=== PATIENT | female | born 1985 | race Caucasian/White ===

== ENCOUNTER 2024-11-23 15:39 | Outpatient (CLI) | payer OTHER, SELFPAY ==
[2024-11-24] LABS: Chlamydia DNA Amplified* NOT DETECTED (No Detected); GC DNA Amplified* NOT DETECTED (No Detected)
[2024-11-30 15:29] LABS: HPV Source Cervix; HPV, High Risk by TMA Not Detected
== END 2024-11-23 15:40 | disposition home or self-care (01) ==
PROVIDERS: PCP Physician Assistant Medical; Visit Provider Physician Assistant Medical
DX: Z11.3 Encounter for screening for infections with a predominantly sexual mode of transmission (principal); Z11.51 Encounter for screening for human papillomavirus (HPV); Z12.4 Encounter for screening for malignant neoplasm of cervix
CPT/HCPCS: 87491; 87591; 87624; 87625; 88141; 88142

== ENCOUNTER 2024-11-30 09:37 | Outpatient (CLI) | payer OTHER, SELFPAY | END 2024-11-30 09:38 | disposition home or self-care (01) | LOC: NFLDREF 12-03 20:08 | PROVIDERS: PCP Physician Assistant Medical; Referring Provider Physician Assistant Medical; Visit Provider Physician Assistant Medical | DX: Z00.01 Encounter for general adult medical examination with abnormal findings (principal); R53.83 Other fatigue; Z83.79 Family history of other diseases of the digestive system; Z13.6 Encounter for screening for cardiovascular disorders; Z13.21 Encounter for screening for nutritional disorder | CPT/HCPCS: 80053; 80061; 81382; 82306; 82728; 84443; 86364 ==

== ENCOUNTER 2024-12-14 10:36 | Outpatient (CLI) | payer OTHER, SELFPAY ==
--- NOTE | 2024-12-14 10:45 | CRLHL7_ITS ---
For Patients: As a result of the Cures Act, medical imaging exams and procedure reports are released immediately into your electronic medical record. You may view this report before your referring provider. If you have questions, please contact your health care provider. DIGITAL DIAGNOSTIC BILATERAL MAMMOGRAM USING TOMOSYNTHESIS AND COMPUTER-AIDED DETECTION RIGHT BREAST ULTRASOUND CLINICAL HISTORY: RIGHT breast lump. COMPARISON: None. TECHNIQUE: Digital BILATERAL mammogram in four projections with computer-aided detection. Tomosynthesis was used in this interpretation. Real-time ultrasound imaging of RIGHT breast with imaging documentation. BREAST COMPOSITION: The breasts are extremely dense, which lowers the sensitivity of mammography. FINDINGS: 3D CC/MLO BILATERAL mammogram images submitted. No suspicious mass or architectural distortion. No suspicious calcifications or adenopathy. Targeted RIGHT breast ultrasound performed at 12 o`clock 2 cm from the nipple. Normal dense fibroglandular tissue. No fibrocystic change or mass. IMPRESSION: No suspicious findings. No evidence of malignancy. RECOMMENDATIONS: Age-appropriate screening mammography. Due to the extremely dense tissue, would consider age-appropriate adjunct whole breast screening ultrasound. A lay language report of this examination will be provided to the patient. BI-RADS Category 1: Negative Dictated by Carmine Townsend MD @ 12/14/2024 1:32:00 PM jj/Dictated by: Carmine Townsend MD @ 12/14/2024 1:32:00 PM (Electronically Signed)
--- NOTE | 2024-12-14 11:15 | CRLHL7_ITS ---
For Patients: As a result of the Cures Act, medical imaging exams and procedure reports are released immediately into your electronic medical record. You may view this report before your referring provider. If you have questions, please contact your health care provider. SEE DIGITAL DIAGNOSTIC BILATERAL MAMMOGRAM PERFORMED SAME DAY CRL:quita devlin/Dictated by: Carmine Townsend MD @ 12/14/2024 1:32:00 PM (Electronically Signed)
--- NOTE | 2024-12-14 12:15 | CRLHL7_ITS ---
For Patients: As a result of the Century Cures Act, medical imaging exams and procedure reports are released immediately into your electronic medical record. You may view this report before your referring provider. If you have questions, please contact your health care provider. Indication: Left lower quadrant lump Technique: Grayscale ultrasound of the left lower quadrant abdominal wall performed in the area of concern. Comparison: None Findings: Normal subcutaneous tissues. No hernia or fluid collection. No solid mass or adenopathy. Impression: Negative sonogram of the left lower quadrant abdominal wall. Dictated by Carmine Townsend MD @ 12/14/2024 1:40:53 PM (Electronically Signed)
== END 2024-12-14 10:37 | disposition home or self-care (01) ==
LOC: MAMMO 10:37
PROVIDERS: PCP Physician Assistant Medical; Visit Provider Physician Assistant Medical
DX: N63.15 Unspecified lump in the right breast, overlapping quadrants (principal); R19.00 Intra-abdominal and pelvic swelling, mass and lump, unspecified site
CPT/HCPCS: 76642; 76705; 77066; G0279

== ENCOUNTER 2025-03-07 13:40 | Outpatient (CLI) | payer OTHER, SELFPAY ==
--- NOTE | 2025-03-07 13:45 | CRLHL7_ITS ---
For Patients: As a result of the Century Cures Act, medical imaging exams and procedure reports are released immediately into your electronic medical record. You may view this report before your referring provider. If you have questions, please contact your health care provider. BILATERAL BREAST MRI WITHOUT AND WITH GADOLINIUM CLINICAL HISTORY: Palpable lump in the RIGHT breast. This was evaluated with mammogram and ultrasound which were negative. INDICATION FOR BREAST MRI: Problem-solving breast MRI. COMPARISON STUDIES: BILATERAL mammogram and RIGHT breast ultrasound 12/14/2024. CONTRAST: 20 mL IV Dotarem. TECHNIQUE: The patient was positioned prone using a breast coil. Multiple imaging sequences were obtained using 1-1.5 mm thick slices with no gap. The image sequences include T2-weighted STIR in the axial plane, T1-weighted nonfat-saturated gradient echo in the axial plane, pre- and post-contrast T1-weighted FLASH 3D with fat suppression in the axial plane, and T1-weighted FLASH high resolution 3D with fat suppression in the sagittal plane. Image post-processing was performed on a [employer] workstation. Complex 3D rendering including maximum intensity projections (MIPS) and volumetric renderings were obtained to optimize visualization of the extent of pathology and relationship to the nipple, skin, and chest wall. This aids in determining feasibility of breast conservation surgery. Subtraction, multiplanar reconstruction, mean curve determination, and angiogenesis mapping were also performed. The study was technically adequate. FINDINGS: Amount of Fibroglandular Tissue: Extreme fibroglandular tissue. Breast Background Enhancement: Mild. RIGHT Breast: There is a mildly prominent duct in the lower central breast containing proteinaceous debris. There is no associated abnormal enhancement. There is no suspicious mass or non-mass enhancement. LEFT Breast: There is a mildly prominent duct in the lower outer breast containing proteinaceous debris. There is no associated abnormal enhancement. There is no suspicious mass or non-mass enhancement. Lymph Nodes: No abnormal morphology lymph nodes. IMPRESSIONS AND RECOMMENDATIONS: 1. No MRI evidence of malignancy in either breast. 2. Annual screening mammography is recommended beginning at age 40 or sooner if indicated based on clinical risk factors. Clinical follow-up for RIGHT breast symptoms. BI-RADS Category 2: Benign Dictated by Dede Low MD @ 03/08/2025 10:51:58 AM jj/Dictated by: Dede Low MD @ 03/08/2025 10:56:00 AM (Electronically Signed)
== END 2025-03-07 13:41 | disposition home or self-care (01) ==
PROVIDERS: PCP Physician Assistant Medical; Visit Provider Surgery
DX: N63.10 Unspecified lump in the right breast, unspecified quadrant (principal)
CPT/HCPCS: 77049; C8908; C8937; A9575